=== PATIENT | male | born 1950 | race Caucasian/White ===

== ENCOUNTER 2021-01-20 14:31 | Observation (INO) ==
[2021-01-20] MEDS ORDERED: Morphine Sulfate 2 MG/ML SYRINGE IVP ONE (20:22)
[2021-01-20 20:44] LABS: Basophils # 0.1 K/mcL (0.0-0.2); Basophils % 0.4 %; Eosinophils # 0.2 K/mcL (0.0-0.6); Eosinophils % 1.2 %; Hematocrit 36.2 % (37.5-50.1); Hemoglobin 11.6 g/dL (12.9-16.9); Immature Granulocytes % 1.1 % (0-4); Lymphocytes # 3.4 K/mcL (0.6-4.6); Lymphocytes % 25.4 %; Mean Corpuscular Hemoglobin 31.8 pg (28.0-33.3); Mean Corpuscular Volume 99.2 fL (83.0-100.0); Mean Platelet Volume 10.2 fL (9.4-12.4); Monocytes # 1.1 K/mcL (0.0-1.3); Monocytes % 8.4 %; Neutrophils # 8.5 K/mcL (1.6-8.9); Platelet Count 186 K/mcL (140-400); Red Blood Count 3.65 M/mcL (4.19-5.50); Red Cell Distribution Width 13.1 % (11.5-14.5); Segmented Neutrophils % 63.5 %; White Blood Count 13.4 K/mcL (4.3-11.1)
[2021-01-20 20:52] LABS: Prothrombin Time 21.8 Seconds (9.4-12.1)
[2021-01-20 20:54] LABS: Activated Partial Thrombo Time 36.6 Seconds (26.0-36.0)
[2021-01-20 20:59] LABS: Calcium 9.2 mg/dL (8.6-10.3); Potassium 4.7 mEq/L (3.5-5.1)
[2021-01-20 23:00] LABS: Bilirubin,Urine Negative (Negative); Blood,Urine Trace-intact (Negative); Clarity,Urine Clear (Clear); Color,Urine Yellow (Yellow); Glucose,Urine (UA) Normal (Normal); Ketones,Urine Negative (Negative); Leukocyte Esterase,Urine Negative (Negative); Nitrite,Urine Negative (Negative); PH,Urine 5.5 pH Units (5.0-8.0); Protein,Urine Negative (Neg-Trace); Specific Gravity,Urine 1.025 (1.010-1.025); Urobilinogen,Urine Normal (Normal)
[2021-01-20 23:03] LABS: Mucus,Urine Few per lpf (None-Few); RBC,Urine 0-3 per hpf (0-3)
[2021-01-21] MEDS ORDERED: Ondansetron 4 MG/2 ML VIAL IVP PRN (00:27)
[2021-01-21] MEDS ORDERED: Melatonin 3 MG TABLET PO PRN (00:27)
[2021-01-21] MEDS ORDERED: Naloxone 0.4 MG/ML INJ IVP PRN (00:27)
[2021-01-21] MEDS ORDERED: Morphine Sulfate 2 MG/ML SYRINGE IVP PRN (00:29)
[2021-01-21 02:23] LABS: Basophils # 0.1 K/mcL (0.0-0.2); Basophils % 0.5 %; Eosinophils # 0.2 K/mcL (0.0-0.6); Eosinophils % 1.4 %; Hematocrit 35.8 % (37.5-50.1); Hemoglobin 11.2 g/dL (12.9-16.9); Immature Granulocytes % 1.3 % (0-4); Lymphocytes # 4.4 K/mcL (0.6-4.6); Lymphocytes % 35.7 %; Mean Corpuscular HGB Conc 31.3 g/dL (31.6-35.5); Mean Corpuscular Hemoglobin 31.3 pg (28.0-33.3); Mean Platelet Volume 10.8 fL (9.4-12.4); Monocytes # 1.2 K/mcL (0.0-1.3); Monocytes % 9.7 %; Neutrophils # 6.3 K/mcL (1.6-8.9); Platelet Count 172 K/mcL (140-400); Red Blood Count 3.58 M/mcL (4.19-5.50); Red Cell Distribution Width 12.9 % (11.5-14.5); Segmented Neutrophils % 51.4 %; White Blood Count 12.2 K/mcL (4.3-11.1)
[2021-01-21 02:33] LABS: Albumin 3.6 g/dL (3.5-5.7); Albumin/Globulin Ratio 1.4 (1.1-2.2); Globulin 2.5 g/dL (2.4-3.5); Magnesium 1.8 mg/dL (1.6-2.6); Phosphorous 2.9 mg/dL (2.7-4.5); Potassium 4.2 mEq/L (3.5-5.1); Total Protein 6.1 g/dL (6.4-8.9)
[2021-01-21] MEDS ORDERED: Gadolinium Contrast Agent (WT Based) IV PRN (09:43)
[2021-01-21] MEDS ORDERED: Acetaminophen 325 MG TABLET PO PRN (15:34)
[2021-01-21] MEDS ORDERED: GADOBUTROL 30 MMOL/30 ML VIAL IVP ONE (16:41)
[2021-01-21] MEDS ORDERED: Isovue-370 500 ML BOTTLE IVP ONE ×2 (17:05)
[2021-01-21] MEDS ORDERED: HYDROcodone/Acet 5-217 mg/10mL 10 ML UDC PO PRN (17:28)
[2021-01-21] MEDS: Gabapentin 300 MG CAPSULE PO SCH ×2 (17:50→22:12)
[2021-01-21] MEDS: Apixaban 5 MG TABLET PO SCH (22:12)
[2021-01-22] MEDS: Apixaban 5 MG TABLET PO SCH ×2 (07:31→21:45)
[2021-01-22] MEDS: Gabapentin 300 MG CAPSULE PO SCH ×3 (07:31→21:45)
[2021-01-23] MEDS: Apixaban 5 MG TABLET PO SCH ×2 (08:54→20:01)
[2021-01-23] MEDS: Gabapentin 300 MG CAPSULE PO SCH ×3 (08:54→19:55)
[2021-01-24 05:16] LABS: Basophils # 0.1 K/mcL (0.0-0.2); Basophils % 0.7 %; Eosinophils # 0.2 K/mcL (0.0-0.6); Eosinophils % 2.2 %; Immature Granulocytes % 1.5 % (0-4); Lymphocytes # 3.3 K/mcL (0.6-4.6); Lymphocytes % 32.1 %; Mean Corpuscular HGB Conc 32.4 g/dL (31.6-35.5); Mean Corpuscular Hemoglobin 32.1 pg (28.0-33.3); Mean Corpuscular Volume 99.1 fL (83.0-100.0); Mean Platelet Volume 10.3 fL (9.4-12.4); Monocytes # 0.9 K/mcL (0.0-1.3); Neutrophils # 5.6 K/mcL (1.6-8.9); Platelet Count 215 K/mcL (140-400); Red Blood Count 3.43 M/mcL (4.19-5.50); Red Cell Distribution Width 12.8 % (11.5-14.5); Segmented Neutrophils % 54.5 %; White Blood Count 10.2 K/mcL (4.3-11.1)
[2021-01-24 05:34] LABS: Calcium 8.8 mg/dL (8.6-10.3); Potassium 4.1 mEq/L (3.5-5.1)
[2021-01-24 08:36] LABS: INR 1.6
[2021-01-24] MEDS: Apixaban 5 MG TABLET PO SCH (09:10)
[2021-01-24] MEDS: Gabapentin 300 MG CAPSULE PO SCH (09:10)
[2021-01-24 10:47] VITALS: TEMP 97.5
[2021-01-24] MEDS ORDERED: 0.9 % Sodium Chloride 500 ML ONE (11:05)
[2021-01-24] MEDS ORDERED: *HR* FentaNYL (PF) 100 MCG/2 ML VIAL IVP ONE (11:12)
[2021-01-24] MEDS ORDERED: *HR* Midazolam HCl 2 MG/2 ML VIAL IVP ONE (11:12)
[2021-01-24 11:26] VITALS: BP 118/75; PULSE 74; O2SAT 100
== END 2021-01-24 14:22 | disposition home health service (06) ==
LOC: EMEROOARM 14:31 → 3BNU 14:31 → SUATTDRO 22:10 → 3BNU 22:50
PROVIDERS: ADMIT Internal Medicine; ATTEND Internal Medicine

== ENCOUNTER 2021-09-29 21:16 | Observation (INO) ==
[2021-09-29] MEDS ORDERED: Iopamidol - 370 500 ML MLS IVP ONE (22:07)
[2021-09-29 22:26] LABS: Hematocrit 24.1 % (37.5-50.1); Hemoglobin 7.4 g/dL (12.9-16.9); Mean Corpuscular HGB Conc 30.7 g/dL (31.6-35.5); Mean Corpuscular Volume 100.8 fL (83.0-100.0); Mean Platelet Volume 10.7 fL (9.4-12.4); Nucleated Red Blood Cells 0.4 /100 WBC (0); Platelet Count 126 K/mcL (140-400); Red Blood Count 2.39 M/mcL (4.19-5.50); Red Cell Distribution Width 16.5 % (11.5-14.5); White Blood Count 11.6 K/mcL (4.3-11.1)
[2021-09-29 22:35] LABS: INR 1.7; Prothrombin Time 19.1 Seconds (9.4-12.1)
[2021-09-29 22:37] LABS: Activated Partial Thrombo Time 32.6 Seconds (26.0-36.0)
[2021-09-29 22:44] LABS: Calcium 8.6 mg/dL (8.6-10.3); Potassium 4.4 mEq/L (3.5-5.1)
[2021-09-29 23:22] LABS: Lymphocytes # 1.4 K/mcL (0.6-4.6); Monocytes # 0.4 K/mcL (0.0-1.3); Neutrophils # 9.4 K/mcL (1.6-8.9)
[2021-09-29 23:23] LABS: Platelet Estimate Slight Decrease (Normal); Toxic Granulation Present (Not Present)
[2021-09-29] MEDS ORDERED: 0.9 % Sodium Chloride 250 ML ONE (23:49)
[2021-09-30] MEDS ORDERED: Naloxone 0.4 MG/ML INJ IVP PRN (00:58)
[2021-09-30] MEDS ORDERED: *HR* HYDROcodone/Acet 5/325 mg TABLET PO PRN (00:58)
[2021-09-30] MEDS ORDERED: Ondansetron 4 MG/2 ML VIAL IVP PRN (00:58)
[2021-09-30] MEDS ORDERED: Acetaminophen 325 MG TABLET PO PRN (00:58)
[2021-09-30] MEDS ORDERED: Melatonin 3 MG TABLET PO PRN (00:58)
[2021-09-30] MEDS ORDERED: *HR* Dextrose 50 % in Water (Syg) 50 ML SYRINGE IVP PRN (01:00)
[2021-09-30] MEDS ORDERED: Dextrose Gel 15 GM/37.5 ML TUBE PO PRN ×2 (01:00)
[2021-09-30] MEDS ORDERED: D5% in Water 1,000 ML IVC PRN (01:00)
[2021-09-30 04:51] LABS: INR 1.5; Prothrombin Time 16.9 Seconds (9.4-12.1)
[2021-09-30 04:53] LABS: Activated Partial Thrombo Time 31.1 Seconds (26.0-36.0)
[2021-09-30 04:58] LABS: Albumin 3.3 g/dL (3.5-5.7); Albumin/Globulin Ratio 1.5 (1.1-2.2); Globulin 2.2 g/dL (2.4-3.5); Magnesium 1.7 mg/dL (1.6-2.6); Phosphorous 2.4 mg/dL (2.7-4.5); Potassium 4.2 mEq/L (3.5-5.1); Total Protein 5.5 g/dL (6.4-8.9)
[2021-09-30 05:07] LABS: % Iron Saturation 34 % (20-55); Iron 82 mcg/dL (65-175); Transferrin 173 mg/dL (203-362)
[2021-09-30 05:15] LABS: Hematocrit 24.4 % (37.5-50.1); Hemoglobin 7.9 g/dL (12.9-16.9); Mean Corpuscular HGB Conc 32.4 g/dL (31.6-35.5); Mean Corpuscular Volume 98.8 fL (83.0-100.0); Nucleated Red Blood Cells 0.4 /100 WBC (0); Platelet Count 120 K/mcL (140-400); Red Blood Count 2.47 M/mcL (4.19-5.50); Red Cell Distribution Width 16.7 % (11.5-14.5); White Blood Count 12.1 K/mcL (4.3-11.1)
[2021-09-30 05:18] LABS: Ferritin > 1500 ng/mL (20-250); Hematocrit 24.2 % (37.5-50.1); Hemoglobin 7.6 g/dL (12.9-16.9)
[2021-09-30 05:22] LABS: Folate 5.9 ng/mL (3.0-16.0)
[2021-09-30 08:51] LABS: Eosinophils # 0.1 K/mcL (0.0-0.6); Lymphocytes # 1.3 K/mcL (0.6-4.6); Monocytes # 0.4 K/mcL (0.0-1.3); Neutrophils # 9.8 K/mcL (1.6-8.9)
[2021-09-30 08:58] LABS: Platelet Estimate Decreased (Normal); Toxic Granulation Present (Not Present)
[2021-09-30] MEDS ORDERED: SODIUM CHLORIDE/NAHCO3/KCL/PEG 4,000 ML SOLN.RECON PO ONE ×2 (16:00→17:00)
[2021-10-01 05:33] LABS: Hematocrit 26.3 % (37.5-50.1); Hemoglobin 8.4 g/dL (12.9-16.9); Mean Corpuscular HGB Conc 31.9 g/dL (31.6-35.5); Mean Corpuscular Hemoglobin 30.9 pg (28.0-33.3); Mean Corpuscular Volume 96.7 fL (83.0-100.0); Mean Platelet Volume 10.7 fL (9.4-12.4); Nucleated Red Blood Cells 0.7 /100 WBC (0); Platelet Count 126 K/mcL (140-400); Red Blood Count 2.72 M/mcL (4.19-5.50); Red Cell Distribution Width 16.6 % (11.5-14.5); White Blood Count 13.8 K/mcL (4.3-11.1)
[2021-10-01 05:56] LABS: Potassium 4.1 mEq/L (3.5-5.1)
[2021-10-01 06:03] LABS: Lymphocytes # 0.8 K/mcL (0.6-4.6); Platelet Estimate Normal (Normal); Toxic Granulation Present (Not Present)
[2021-10-01] MEDS ORDERED: *HR* Metoprolol 5 MG/5 ML VIAL IVP ONE ×2 (06:27→08:07)
[2021-10-01] MEDS ORDERED: *HR* Propofol 200 MG/20 ML VIAL IVP ONE (08:33)
[2021-10-01] MEDS ORDERED: Lidocaine -MPF 2% 5 ML VIAL ONE (08:33)
[2021-10-01] MEDS ORDERED: Simethicone 40 MG/0.6 ML MLS IR ONE (08:39)
[2021-10-01 12:04] VITALS: BP 111/64; PULSE 80; TEMP 98.4; O2SAT 95
== END 2021-10-01 13:30 | disposition home or self-care (01) ==
LOC: 2ANU 21:16 → EMEROOARM 21:16 → SUATTDRO 09-30 00:58 → 2ANU 09-30 02:44
PROVIDERS: ADMIT Internal Medicine; ATTEND Internal Medicine

== ENCOUNTER 2021-11-14 15:01 | Observation (INO) ==
[2021-11-14] MEDS ORDERED: Ondansetron 4 MG/2 ML VIAL IVP ONE (16:38)
[2021-11-14] MEDS ORDERED: 0.9 % Sodium Chloride 1,000 ML IVC ONE (16:38)
[2021-11-14] MEDS ORDERED: Iopamidol - 370 500 ML MLS IVP ONE (16:40)
[2021-11-14 16:58] LABS: Hematocrit 19.9 % (37.5-50.1); Hemoglobin 6.3 g/dL (12.9-16.9); Mean Corpuscular HGB Conc 31.7 g/dL (31.6-35.5); Mean Platelet Volume 11.9 fL (9.4-12.4); Nucleated Red Blood Cells 3.8 /100 WBC (0); Red Blood Count 1.97 M/mcL (4.19-5.50); Red Cell Distribution Width 19.6 % (11.5-14.5); White Blood Count 7.9 K/mcL (4.3-11.1)
[2021-11-14 16:59] LABS: Platelet Count 96 K/mcL (140-400)
[2021-11-14 17:18] LABS: Alanine Aminotransferase 15 Units/L (7-52); Albumin 3.3 g/dL (3.5-5.7); Albumin/Globulin Ratio 1.3 (1.1-2.2); Alkaline Phosphatase 205 Units/L (34-104); Aspartate Amino Transferase 18 Units/L (13-39); BUN/Creatinine Ratio 17 (6-26); Bilirubin,Direct 0.2 mg/dL (0.0-0.2); Bilirubin,Indirect 0.5 mg/dL (0.0-1.0); Bilirubin,Total 0.7 mg/dL (0.3-1.0); Blood Urea Nitrogen 22 mg/dL (8-23); Calcium 7.2 mg/dL (8.6-10.3); Carbon Dioxide 21 mEq/L (23-29); Chloride 108 mEq/L (98-107); Globulin 2.5 g/dL (2.4-3.5); Glucose 140 mg/dL (70-105); Lipase 70 Units/L (11-82); Osmolality,Calculated 290 (280-300); Potassium 3.8 mEq/L (3.5-5.1); Sodium 137 mEq/L (136-145); Total Protein 5.8 g/dL (6.4-8.9); Troponin I < 0.03 ng/mL (< 0.04)
[2021-11-14 17:22] LABS: Lymphocytes # 0.6 K/mcL (0.6-4.6); Monocytes # 0.3 K/mcL (0.0-1.3); Neutrophils # 6.8 K/mcL (1.6-8.9); Platelet Estimate Decreased (Normal)
[2021-11-14] MEDS ORDERED: Naloxone 0.4 MG/ML INJ IVP PRN (19:46)
[2021-11-14] MEDS ORDERED: Ondansetron 4 MG/2 ML VIAL IVP PRN (19:46)
[2021-11-14] MEDS ORDERED: Melatonin 3 MG TABLET PO PRN (19:46)
[2021-11-14] MEDS ORDERED: D5% in Water 1,000 ML IVC PRN (20:53)
[2021-11-14] MEDS ORDERED: Dextrose Gel 15 GM/37.5 ML TUBE PO PRN ×2 (20:53)
[2021-11-14] MEDS ORDERED: *HR* Dextrose 50 % in Water (Syg) 50 ML SYRINGE IVP PRN (20:53)
[2021-11-14 21:13] LABS: % Iron Saturation 26 % (20-55); Iron 73 mcg/dL (65-175); Transferrin 197 mg/dL (203-362)
[2021-11-14 21:38] LABS: Folate 6.2 ng/mL (3.0-16.0)
[2021-11-14] MEDS ORDERED: 0.9 % Sodium Chloride 250 ML ONE (21:38)
[2021-11-14 21:41] LABS: Vitamin B12 > 1500 pg/mL (250-1100)
[2021-11-14] MEDS ORDERED: *HR* HYDROcodone/Acet 10/325 mg TABLET PO PRN (21:53)
[2021-11-14] MEDS: *HR* Metoprolol 5 MG/5 ML VIAL IVP PRN (22:19)
[2021-11-14 22:28] LABS: Prostate Specific Antigen 8.43 ng/mL (Less than 4.00)
[2021-11-14 22:33] LABS: Bilirubin,Urine Negative (Negative); Blood,Urine Negative (Negative); Clarity,Urine Clear (Clear); Color,Urine Light-Yellow (Yellow); Glucose,Urine (UA) Normal (Normal); Ketones,Urine Trace mg/dL (Negative); Leukocyte Esterase,Urine Negative (Negative); Nitrite,Urine Negative (Negative); Protein,Urine Negative (Neg-Trace); Specific Gravity,Urine > 1.030 (1.010-1.025); Urobilinogen,Urine Normal (Normal)
[2021-11-15] MEDS: Insulin LISPRO 300 UNITS/3 ML VIAL SUBQ SCH ×4 (00:50→19:15)
[2021-11-15 04:28] LABS: Hemoglobin 7.2 g/dL (12.9-16.9)
[2021-11-15 04:29] LABS: Hematocrit 22.4 % (37.5-50.1); Immature Platelets 5.8 % (1.1-6.1); Mean Corpuscular HGB Conc 32.1 g/dL (31.6-35.5); Mean Corpuscular Hemoglobin 31.4 pg (28.0-33.3); Mean Corpuscular Volume 97.8 fL (83.0-100.0); Mean Platelet Volume 10.8 fL (9.4-12.4); Red Blood Count 2.29 M/mcL (4.19-5.50)
[2021-11-15 04:34] LABS: INR 1.3; Prothrombin Time 14.1 Seconds (9.4-12.1)
[2021-11-15 04:37] LABS: Activated Partial Thrombo Time 29.6 Seconds (26.0-36.0)
[2021-11-15 04:44] LABS: BUN/Creatinine Ratio 16 (6-26); Blood Urea Nitrogen 20 mg/dL (8-23); Calcium 7.2 mg/dL (8.6-10.3); Carbon Dioxide 21 mEq/L (23-29); Chloride 110 mEq/L (98-107); Glucose 113 mg/dL (70-105); Osmolality,Calculated 293 (280-300); Potassium 3.8 mEq/L (3.5-5.1); Sodium 140 mEq/L (136-145)
[2021-11-15 05:24] LABS: Ferritin > 1500 ng/mL (20-250)
[2021-11-15] MEDS: *HR* Metoprolol 5 MG/5 ML VIAL IVP PRN (06:00)
[2021-11-15] MEDS: 0.9 % Sodium Chloride 1,000 ML IVC SCH ×2 (07:51→19:30)
[2021-11-16] MEDS: Insulin LISPRO 300 UNITS/3 ML VIAL SUBQ SCH ×3 (00:20→11:23)
[2021-11-16 02:22] LABS: Hematocrit 23.3 % (37.5-50.1); Hemoglobin 7.4 g/dL (12.9-16.9); Immature Platelets 5.2 % (1.1-6.1); Mean Corpuscular HGB Conc 31.8 g/dL (31.6-35.5); Mean Corpuscular Hemoglobin 31.8 pg (28.0-33.3); Mean Platelet Volume 10.7 fL (9.4-12.4); Red Blood Count 2.33 M/mcL (4.19-5.50); White Blood Count 11.7 K/mcL (4.3-11.1)
[2021-11-16 02:37] LABS: Calcium 6.8 mg/dL (8.6-10.3); Potassium 3.3 mEq/L (3.5-5.1)
[2021-11-16 08:36] LABS: % Iron Saturation 37 % (20-55); Iron 96 mcg/dL (65-175); Transferrin 187 mg/dL (203-362)
[2021-11-16 11:21] VITALS: BP 90/54; PULSE 87; TEMP 98.5; O2SAT 93
== END 2021-11-16 13:05 | disposition hospice, home (50) ==
LOC: EMEROOARM 15:01 → 3NENU 15:01 → SUATTDRO 19:48 → 3NENU 20:21 → 2NENU 20:22
PROVIDERS: ADMIT Internal Medicine; ATTEND Internal Medicine